=== PATIENT | female | born 1970 | race Caucasian/White ===

== ENCOUNTER 2024-07-12 09:58 | Day surgery (SDC) | payer BC ==
[~2024-07-12] VITALS: Ht 175.3 cm; Wt 162.5 kg
[~2024-07-12 09:58] MED LIST: LEVO100T9 PO; ROSU5TAB43 PO
[2024-07-12 10:29] VITALS: BP 157/126; PULSE 78; RESP 18
[2024-07-12] MEDS ORDERED: propofol inj 40 ML IV ONE ×2 (11:11→11:33)
[2024-07-12] MEDS ORDERED: propofol inj 20 ML IV ONE (11:32)
[2024-07-12 11:40] VITALS: BP 101/69; PULSE 62; RESP 16; O2SAT 99
[2024-07-12 11:50] VITALS: BP 125/46; PULSE 65; RESP 16; O2SAT 98
[2024-07-12 12:00] VITALS: BP 101/69; PULSE 57; RESP 17; O2SAT 99
[2024-07-12 12:10] VITALS: BP 105/66; PULSE 67; RESP 18; O2SAT 98
== END 2024-07-12 12:10 | disposition home or self-care (01) ==
LOC: GI LAB 09:58
PROVIDERS: ATTEND Internal Medicine Gastroenterology
DX: R19.5 Other fecal abnormalities (principal); K64.8 Other hemorrhoids; D12.5 Benign neoplasm of sigmoid colon; E66.9 Obesity, unspecified; Z68.43 Body mass index [BMI] 50.0-59.9, adult
CPT/HCPCS: 45385; J2704; J7030; Z7512; A4620; C1889